=== PATIENT | male | born 1945 | race Caucasian/White ===

== ENCOUNTER → 2016-11-29 | Outpatient (CLI) | payer MEDICARE ==
--- NOTE | 2016-11-30 08:29 | CONS ---
DATE OF CONSULTATION: This patient has severe symptomatic obstructive sleep apnea. He was initially diagnosed back in 2010 and at that time under the care of Dr. Gonzalez the patient was found to have severe LETICIA with an AHI of 59.5. Following that, he was placed on a CPAP pressure of 8 cm of water. The patient used the machine for a total of 2 weeks, unable to tolerate it and he returned it back and he did not get any followup or any treatment following that, Over the years he had become much more symptomatic and he is at the point where he is unable to sleep well at night. His sleep quality is poor. He is waking up tired, fatigued, and not refreshed during the day and he is having frequent sleep attacks and falling asleep here and there without any warning. His weight is also up by approximately 10 pounds. He is requesting further evaluation and treatment. He goes to bed around 11:30 p.m., wakes up at 8 a.m. in the morning and despite that he is still sleepy. He snores and stops breathing throughout the night. PAST MEDICAL HISTORY: 1. Severe LETICIA details as above. 2. Obesity. 3. Bronchial asthma. 4. Degenerative arthritis. Surgical history includes right ear surgery, left knee surgery, right knee surgery and right shoulder surgery. SOCIAL HISTORY: The patient is a nonsmoker. No history of alcohol. No history of IV drugs. FAMILY HISTORY: Negative for sleep apnea. REVIEW OF SYSTEMS: Twelve-point review of systems was done. All of the positive findings were mentioned above in the history of present illness. No history of any motor vehicle accidents because of feeling drowsy or sleepy. No restlessness in the lower extremities. No stroke. No angina. No shortness of breath. He is known to have bronchial asthma, well treated for the time being. BP is 154/81, pulse 76, respirations 16, temperature 98.2, saturation 97% on room air. [place] score is 5. Neck size 18 inches. BMI is 34.1. Weight is 218. Height is 67 inches. GENERAL APPEARANCE: Calm, comfortable. HEENT: Mallampati class IV. There is no goiter or neck masses. LUNGS: Clear to auscultation. HEART: Sounds are regular rate and rhythm. Normal S1, S2. No S3, S4. No murmurs. ABDOMEN: Soft, nontender. No organomegaly. EXTREMITIES: No edema, no cyanosis or clubbing. IMPRESSION: 1. Severe symptomatic obstructive sleep apnea. Based on apnea-hypopnea index was 59.5 based on a sleep study in 2010. The patient had failed to undertake the treatment and follow up on his disease. Note that back then he was placed on a pressure of 8 cm of water. Over the past 5 years he has gained around 10 pounds and he has become much more symptomatic from his sleep breathing disorder. 2. Bronchial asthma. 3. Degenerative arthritis. 4. Nasal septal deviation. PLAN: 1. The patient will need a split-night study to re-confirm the presence of sleep apnea and titrate him to the appropriate pressure and find him the right mask interface. 2. Encourage weight loss. 3. Implement good sleep hygiene measures. 4. Will continue to follow and make further recommendations based on the results of the split-night. The patient seems to be more committed to undertake the treatment now that he has become much more symptomatic.
== END | disposition home or self-care (01) ==
LOC: SLEEP 16:25
PROVIDERS: ATTEND Internal Medicine Critical Care Medicine
DX: G47.33 Obstructive sleep apnea (adult) (pediatric) (principal); J45.909 Unspecified asthma, uncomplicated; M19.90 Unspecified osteoarthritis, unspecified site; J34.2 Deviated nasal septum
CPT/HCPCS: 99211

== ENCOUNTER 2016-12-04 00:56 | Emergency (ER) | payer MEDICARE ==
[2016-12-04 01:21] VITALS: RESP 18
[2016-12-04] MEDS ORDERED: ORPHENADRINE 30 MG/ML 2 ML VIAL IM STA (01:44)
--- NOTE | 2016-12-04 02:23 | XR ---
EXAM: XR Right Hip With Pelvis When Performed, 2 or 3 Views CLINICAL HISTORY: Reason: Pain TECHNIQUE: Two or three views of the right hip, with pelvis when performed. COMPARISON: No relevant prior studies available. FINDINGS: Bones/joints: No acute fracture. No evidence of dislocation. 4-5 mm round sclerotic focus in the right femoral neck is indeterminate, statistically a bone island particularly in the absence of a known primary neoplasm. Mild symmetric degenerative change of both hips. Partially included lower lumbar spondylosis. Soft tissues: No radiopaque foreign body. IMPRESSION: 1. No acute osseous abnormality is seen at this time. 2. Small round sclerotic focus in the right femoral neck is indeterminate, statistically a bone island particularly in the absence of a known primary neoplasm.
--- NOTE | 2016-12-04 02:30 | ED ---
Lower Extremity Injury HPI - General Chief Complaint: Extremity Injury, Lower Stated Complaint: leg pain Time Seen by Provider: 12/04/16 01:33 Source: patient, RN notes reviewed Mode of arrival: wheelchair Limitations: no limitations - History of Present Illness Initial Comments: 71-year-old male presents emergency chief complaint of right leg pain. He stated this patient is in the chair. Patient states also inserted have spasming and increased pain to his right leg. Patient states when he stood up the pain got worse. Patient states the pain seems to be letting up this time. Patient denies any history of this in the past. Patient denies any falls traumas or injuries.Patient denies any recent fever, chills, shortness of breath , chest pain, back pain, abdominal pain, nausea vomiting, numbness or tingling, dysuria or hematuria, constipation or diarrhea, headaches or visual changes, or any other current symptoms. - Related Data Home Medications Medication Instructions Recorded Confirmed Montelukast [Singulair] 1 tab PO DAILY 12/04/16 12/04/16 Allergies Allergy/AdvReac Type Severity Reaction Status Date / Time No Known Allergies Allergy Verified 12/04/16 01:18 Review of Systems ROS Statement: Those systems with pertinent positive or pertinent negative responses have been documented in the HPI. ROS Other: All systems not noted in ROS Statement are negative. Past Medical History Past Medical History: No Reported History History of Any Multi-Drug Resistant Organisms: None Reported Past Surgical History: Ear Surgery, Orthopedic Surgery Past Psychological History: No Psychological Hx Reported Smoking Status: Former smoker Past Alcohol Use History: Occasional Past Drug Use History: None Reported General Exam - General Exam Comments Initial Comments: General: The patient is awake and alert, in no distress, and does not appear acutely ill. Neck: The neck is supple, there is no tenderness. Cardiovascular: There is a regular rate and rhythm. No murmur, rub or gallop is appreciated. Respiratory: Lungs are clear to auscultation, respirations are non-labored, breath sounds are equal. No wheezes, stridor, rales, or rhonchi. Musculoskeletal: Sensation to have 2+ pulses the right lower side. Full Range of motion of right hip right knee and right ankle. Patient does have some tenderness along the lateral aspect of the right hip to the right knee. There is no swelling or deformity noted. Patient does have pain with range of motion in the extremes of the right hip positive for range of motion. Neurological: CN II-XII intact, There are no obvious motor or sensory deficits. Coordination appears grossly intact. Speech is normal. Skin: Skin is warm and dry and no rashes or lesions are noted. Psychiatric: Normal mood and affect. Limitations: no limitations Course Vital Signs 12/04/16 12/04/16 01:19 03:46 Temperature 98.4 F 97 F L Pulse Rate 71 65 Respiratory 18 18 Rate Blood Pressure 142/70 140/62 O2 Sat by Pulse 98 97 Oximetry Medical Decision Making - Medical Decision Making 71-year-old male presents emergency Department chief complaint of right hip pain. This time CAT scan and other laboratory but is not showing any acute findings in the patient's right leg. At this time we discussed patient most likely was having a muscle spasm. We discussed continuing Motrin here in peds. Discussed return parameters and follow-up. We discussed all the patient's questions. He stated he understood and plan. He will be discharged home. Disposition Clinical Impression: Muscle spasm of right leg Disposition: HOME SELF-CARE Condition: Stable Instructions: Muscle Spasm (ED) Additional Instructions: Please use medication as discussed. Please follow up with family doctor if symptoms have not improved over the next two days. Please return to the emergency room if your symptoms increase or worsen or for any other concerns. Referrals: Romy Negro MD [Primary Care Provider] - 1-2 days Time of Disposition: 03:51
--- NOTE | 2016-12-04 03:20 | US ---
EXAM: US Duplex Right Lower Extremity Veins CLINICAL HISTORY: Reason: Pain TECHNIQUE: Real-time ultrasound scan of the veins of the right lower extremity with color Doppler flow, spectral waveform analysis and compression. COMPARISON: No relevant prior studies available. FINDINGS: Deep veins: Unremarkable. No DVT in the common femoral, femoral, proximal deep femoral or popliteal veins. The veins are compressible with normal color flow and augmentation. Superficial veins: Unremarkable. No thrombus in the visualized greater saphenous vein. Soft tissues: No acute findings. No popliteal cyst. IMPRESSION: Normal right lower extremity duplex venous ultrasound.
[2016-12-04 03:48] VITALS: BP 140/62; PULSE 65; TEMP 97
--- NOTE | 2016-12-04 03:48 | CT ---
EXAM: CT Right Lower Extremity Without Intravenous Contrast, Hip CLINICAL HISTORY: Reason: Pain TECHNIQUE: Axial computed tomography images of the right hip without intravenous contrast. CTDI is 21.70 mGy and DLP is 541.20 mGy-cm This CT exam was performed using one or more of the following dose reduction techniques: automated exposure control, adjustment of the mA and/or kV according to patient size, and/or use of iterative reconstruction technique. COMPARISON: Earlier right hip radiographs of the same evening. FINDINGS: Bones/joints: There is no evidence of an acute fracture. No dislocation. Mild degenerative changes. Again seen is a small 5 mm sclerotic focus anteriorly within the femoral head/neck. There is calcific or ossific density present along the posterior margin of the proximal femur, most likely on an enthesopathic basis and/or related to prior injury/tug lesion. Soft tissues: No radiopaque foreign body. No gross hip joint effusion. IMPRESSION: 1. No acute osseous abnormality is seen at this time to account for the patient's pain, further workup for which could be based on clinical grounds. 2. Presumed chronic appearing changes about the right hip, as above. This exam could serve as baseline for future follow-up CT or MRI, to ensure stability, if concern or symptoms persist.
== END 2016-12-04 04:03 | disposition home or self-care (01) ==
LOC: EC 00:56
DX: M62.838 Other muscle spasm (principal); Z87.891 Personal history of nicotine dependence; Z79.899 Other long term (current) drug therapy
CPT/HCPCS: 99284; 96372; 73502; 93971; 73700; J2360

== ENCOUNTER → 2017-01-31 | Outpatient (CLI) | payer MEDICARE ==
--- NOTE | 2017-02-03 14:04 | PN ---
A 71 year old male patient with severe symptomatic obstructive sleep apnea with an AHI of 59.5. The patient was treated with an auto CPAP unit with a maximum pressure of 17 and minimum pressure of 5. Today he is coming in for a compliancy check. He reports marked improvement while on CPAP therapy. His sleep quality has improved considerably. He is wearing his CPAP every night without any interruption. He is averaging around 6.4 hours of CPAP use per night. His P90 pressure is at 12. His leak factor is only at 5 L per minute. His AHI while on treatment is down to 3.4. He is utilizing Simplex Full face mask. He is quite content with his treatment and he is seeing adequate benefit as reported. BP 119/65. Pulse 62. Respiratory rate 16. Temperature 98.1, weight 219. Saturation 98% on room air. General appearance: Calm, comfortable. HEENT: Negative for JVD. No goiter. No neck masses. Mallampati Class IV. Lungs clear to auscultation. Heart sounds regular rate and rhythm. Normal S1, S2. No S3, no S4. No murmurs. Abdomen soft, nontender. No organomegaly. Extremities: Trace edema. There is no cyanosis or clubbing. IMPRESSION: 1. Severe symptomatic obstructive sleep apnea, AHI of 59.9. The patient is undergoing successful CPAP therapy with an auto CPAP unit with a maximum pressure of 17, minimum of 5. Compliance data was checked. 2. Hypersomnia, improved. 3. Degenerative arthritis. 4. Bronchial asthma. PLAN: Treatment is successful. No need for any adjustment on his CPAP unit. The patient's AHI while on treatment is less than 5. He will continue Simplex full face mask. Treatment is successful. Encourage weight loss. The patient is benefitting from treatment. See me back in a years's time or earlier if needed. MAY
== END | disposition home or self-care (01) ==
LOC: SLEEP 13:53
PROVIDERS: ATTEND Internal Medicine Critical Care Medicine
DX: G47.33 Obstructive sleep apnea (adult) (pediatric) (principal); G47.10 Hypersomnia, unspecified

== ENCOUNTER → 2017-05-04 | Outpatient (CLI) | payer MEDICARE ==
[2017-05-04 12:47] LABS: Appearance,Urine Clear (Clear); Bilirubin,Urine Negative (Negative); Glucose,Urine (UA) Negative (Negative); Ketones,Urine Negative (Negative); Leukocyte Esterase,Urine Negative (Negative); Nitrite,Urine Negative (Negative); PH, Urine 6.5 (5.0-8.0); Protein,Urine Negative (Negative); Specific Gravity,Urine 1.005 (1.001-1.035); UA Billing (MACRO vs. MICRO) CHEM; Urobilinogen,Urine <2.0 mg/dL (<2.0)
[2017-05-04 12:50] LABS: Basophils % (A) 1 %; CH 31.4; CHCM 33.4; Eosinophils # (A) 0.2 k/uL (0-0.7); Eosinophils % (A) 5 %; HCT 45.1 % (39.0-53.0); HGB 14.7 gm/dL (13.0-17.5); Luc # (Auto) 0.14; Luc % (Auto) 3; Lymphocytes # (A) 1.7 k/uL (1.0-4.8); Lymphocytes % (A) 35 %; MCH 30.8 pg (25.0-35.0); MCHC 32.6 g/dL (31.0-37.0); MCV 94.3 fL (80.0-100.0); Mean Platelet Volume 7.8; Monocytes # (A) 0.3 k/uL (0-1.0); Monocytes % (A) 6 %; Neutrophils # (A) 2.3 k/uL (1.3-7.7); Neutrophils % (A) 50 %; RBC 4.78 m/uL (4.30-5.90); RDW 13.6 % (11.5-15.5); WBC 4.7 k/uL (3.8-10.6); WBC (Perox) 4.73
[2017-05-04 13:00] LABS: ALT 34 U/L (21-72); AST 19 U/L (17-59); Alkaline Phosphatase 62 U/L (38-126); Anion Gap 7 mmol/L; Blood Urea Nitrogen 13 mg/dL (9-20); Calcium 9.3 mg/dL (8.4-10.2); Carbon Dioxide 27 mmol/L (22-30); Chloride 107 mmol/L (98-107); Cholesterol 186 mg/dL (<200); Creatine Kinase 60 U/L (55-170); Glucose 99 mg/dL (74-99); HDL Cholesterol 39 mg/dL (40-60); Non-African American GFR(MDRD) >60 (>60 ml/min/1.73 sqM); Potassium 4.9 mmol/L (3.5-5.1); Sodium 141 mmol/L (137-145); Total Bilirubin 0.6 mg/dL (0.2-1.3); Total Protein 6.3 g/dL (6.3-8.2)
[2017-05-04 13:30] LABS: Prostate Specific Antigen 1.85 ng/mL (0.00-4.00)
[2017-05-04 21:17] LABS: Hemoglobin A1C 5.5 % (4.2-6.1)
== END | disposition home or self-care (01) ==
LOC: LABWHC1 12:12
PROVIDERS: ATTEND Internal Medicine
DX: G47.33 Obstructive sleep apnea (adult) (pediatric) (principal); J30.9 Allergic rhinitis, unspecified; E78.00 Pure hypercholesterolemia, unspecified; N40.0 Benign prostatic hyperplasia without lower urinary tract symptoms
CPT/HCPCS: 36415; 80053; 80061; 81003; 82306; 82550; 83036; 84153; 84439; 84443; 85025

== ENCOUNTER → 2018-01-30 | Outpatient (CLI) | payer MEDICARE ==
--- NOTE | 2018-01-30 13:52 | PN ---
PROGRESS NOTE Shravan is 72 with known history of obstructive sleep apnea. He is coming in for a yearly check. Note that the patient has severe disease with an AHI of 59.5. Currently he is on auto CPAP with a minimum pressure of 5, maximum pressure of 17. He is using a full-face mask. On today's evaluation, he continues to see adequate benefit from CPAP therapy. Based on the compliance data, the patient has been utilizing a CPAP for more than 4 hours 100% of the time. His average CPAP pressure is 11.8. The average time on the CPAP is 7.6 hours per night. His leak factor 4 L/minute. His AHI is down to 3.3. He has no specific complaints. He wants his supplies to be renewed. Upon further questioning, the patient has bronchial asthma and he is currently on Symbicort. He wanted to have some further investigation regarding any ongoing pulmonary issues knowing that he is having some exertional dyspnea. Note that he has lost around 6 pounds since his last evaluation. He has a small anterior abdominal wall hernia. He has previous history of exposure to [place] during his service in [employer]. He has exertional dyspnea. Occasional cough. Minimum amount of wheezing. No chest pain. No nausea or vomiting. Current [place] Scores of 6. No other significant events over the past 12 months. REVIEW OF SYSTEMS: Twelve-point review of system was done. He has history of environmental allergies and he has received allergy shots through Dr. Haynes and mainly dust mites. He has no ongoing angina. He has undergone a cardiac evaluation by Dr. Melara including a stress test that came back negative. No nausea. No vomiting. No emesis. No chest pain. No major hypersomnia or sleepiness during the day. No altered mentation. No skin rashes. No falls. No other complaints otherwise. PHYSICAL EXAMINATION: BP is 129/69, pulse 66, respirations 16, temperature 97.9 saturation 98% on room air. Weight is 213 height is 5 feet 7 inches. [place] score is 6. BMI 33.3. GENERAL APPEARANCE: Calm, comfortable. Head is atraumatic, normocephalic. Neck is short supple, crowding of posterior of oropharynx is present. No goiter or neck masses. LUNGS: Clear to auscultation. HEART: Sounds regular rate and rhythm. Normal S1, S2. No S3, S4. No murmurs. ABDOMEN: Soft, nontender. No organomegaly. EXTREMITIES: No edema. No cyanosis or clubbing. NEUROLOGIC: The patient is alert and oriented x3. There is no focal neurological deficits. PSYCHIATRIC: Negative for any psych history. No anxiety, no depression. IMPRESSION: 1. Symptomatic severe obstructive sleep apnea with an AHI of 59.9. Currently on APAP with a minimum pressure of 5 maximum pressure of 17 with adequate compliance and clinical response. 2. Bronchial asthma, currently on Symbicort. 3. Small anterior abdominal wall hernia. 4. DUST allergies. 5. Degenerative arthritis. 6. Hypersomnia recovered and current [place] score is down to 6. PLAN: 1. Continue CPAP at same level of pressure. 2. Renew supplies. 3. See me at the pulmonary clinic regarding any asthma related issues or problems in the future. MMODL / IJN: [id number] /
== END | disposition home or self-care (01) ==
LOC: SLEEP 11:38
PROVIDERS: ATTEND Internal Medicine Critical Care Medicine
DX: G47.33 Obstructive sleep apnea (adult) (pediatric) (principal); J45.909 Unspecified asthma, uncomplicated; K43.9 Ventral hernia without obstruction or gangrene; M19.90 Unspecified osteoarthritis, unspecified site; Z79.899 Other long term (current) drug therapy; Z91.09 Other allergy status, other than to drugs and biological substances; Z99.89 Dependence on other enabling machines and devices

== ENCOUNTER → 2018-03-14 | Outpatient (CLI) | payer MEDICARE ==
[2018-03-14 21:41] LABS: Alternaria alternata IgE <0.10 kU/L; Birch IgE <0.10 kU/L; Cat Epith & Dander IgE 2.07 kU/L; Cockroach IgE <0.10 kU/L; Dermato. farinae IgE <0.10 kU/L; Dog Dander IgE 0.13 kU/L; Elm IgE <0.10 kU/L; Maple (Box Elder) IgE <0.10 kU/L; Oak IgE <0.10 kU/L; Ragweed,Common IgE <0.10 kU/L; Red Top (Bentgrass) IgE <0.10 kU/L
== END | disposition home or self-care (01) ==
LOC: LABWHC1 11:21
PROVIDERS: ATTEND Internal Medicine Critical Care Medicine
DX: J45.909 Unspecified asthma, uncomplicated (principal); R06.02 Shortness of breath
CPT/HCPCS: 36415; 82785; 86003

== ENCOUNTER → 2018-05-09 | Outpatient (CLI) | payer MEDICARE ==
[2018-05-09 12:02] LABS: Basophils % (A) 1 %; Eosinophils # (A) 0.2 k/uL (0-0.7); Eosinophils % (A) 3 %; HCT 44.1 % (39.0-53.0); HGB 14.7 gm/dL (13.0-17.5); Lymphocytes # (A) 1.6 k/uL (1.0-4.8); Lymphocytes % (A) 28 %; MCH 30.4 pg (25.0-35.0); MCHC 33.4 g/dL (31.0-37.0); MCV 91.2 fL (80.0-100.0); Mean Platelet Volume 7.9; Monocytes # (A) 0.3 k/uL (0-1.0); Monocytes % (A) 5 %; Neutrophils # (A) 3.5 k/uL (1.3-7.7); Neutrophils % (A) 62 %; Platelet Count 196 k/uL (150-450); RBC 4.83 m/uL (4.30-5.90); RDW 13.2 % (11.5-15.5); WBC 5.7 k/uL (3.8-10.6)
[2018-05-09 12:37] LABS: Albumin 3.5 g/dL (3.5-5.0); Calcium 9.4 mg/dL (8.4-10.2); Potassium 4.8 mmol/L (3.5-5.1); Total Bilirubin 0.6 mg/dL (0.2-1.3); Total Protein 6.4 g/dL (6.3-8.2); Uric Acid 5.6 mg/dL (3.5-8.5)
[2018-05-09 12:43] LABS: Appearance,Urine Clear (Clear); Bilirubin,Urine Negative (Negative); Blood,Urine Negative (Negative); Color,Urine Yellow; Glucose,Urine (UA) Negative (Negative); Ketones,Urine Negative (Negative); Leukocyte Esterase,Urine Negative (Negative); Nitrite,Urine Negative (Negative); PH, Urine 6.5 (5.0-8.0); Protein,Urine Negative (Negative); Specific Gravity,Urine 1.011 (1.001-1.035); Urobilinogen,Urine <2.0 mg/dL (<2.0)
[2018-05-09 12:50] LABS: T4, Free (Free Thyroxine) 0.99 ng/dL (0.78-2.19)
[2018-05-09 13:44] LABS: Prostate Specific Antigen 1.87 ng/mL (0.00-4.00)
[2018-05-09 19:11] LABS: Hemoglobin A1C 5.3 % (4.0-6.0)
== END | disposition home or self-care (01) ==
LOC: LABWHC1 10:42
PROVIDERS: ATTEND Internal Medicine
DX: Z00.00 Encounter for general adult medical examination without abnormal findings (principal); G47.33 Obstructive sleep apnea (adult) (pediatric); J45.30 Mild persistent asthma, uncomplicated; E78.00 Pure hypercholesterolemia, unspecified; N40.0 Benign prostatic hyperplasia without lower urinary tract symptoms
CPT/HCPCS: 36415; 80053; 80061; 81003; 82306; 82550; 83036; 84153; 84439; 84443; 84550; 85025

== ENCOUNTER 2019-03-18 12:17 | Emergency (ER) | payer MEDICARE ==
[2019-03-18 12:44] VITALS: RESP 18
[2019-03-18] MEDS ORDERED: HYDROcodone/APAP 5-325MG 1 EACH TAB PO STA (14:11)
--- NOTE | 2019-03-18 14:28 | ED ---
Back Pain HPI - General Chief Complaint: Back Pain/Injury Stated Complaint: lt leg pain Time Seen by Provider: 03/18/19 13:57 Source: patient, RN notes reviewed Limitations: no limitations - History of Present Illness Initial Comments: 73-year-old male presents emergency Department with chief complaint of left leg pain. Patient had progressive symptoms over the last week states it's unbearable to ambulate patient states that he has a history of back pain states that this is different. Patient states she's never had symptoms on his left leg. Patient denies any bowel bladder incontinence or retention. Patient states that he has pain with rest worse with standing. Patient denies any discoloration of his leg does states it is sensitive to touch. - Related Data Home Medications Medication Instructions Recorded Confirmed Montelukast [Singulair] 10 mg PO HS 12/04/16 03/18/19 Albuterol Sulfate [Proair Hfa] 1 - 2 puff INHALATION RT-Q6H PRN 03/18/19 03/18/19 Budesonide-Formot 160-4.5 Mcg 1 puff INHALATION RT-BID 03/18/19 03/18/19 [Symbicort 160-4.5 Mcg Inhaler] Multivit-Min/FA/Lycopen/Lutein 1 tab PO HS 03/18/19 03/18/19 [Centrum Silver Tablet] Previous Rx's Medication Instructions Recorded HYDROcodone/APAP 7.5-325MG [[place] 1 tab PO Q6HR PRN 3 Days #12 tab 03/18/19 7.5-325] predniSONE 50 mg PO DAILY #5 tab 03/18/19 Allergies Allergy/AdvReac Type Severity Reaction Status Date / Time No Known Allergies Allergy Verified 03/18/19 13:02 Review of Systems ROS Statement: Those systems with pertinent positive or pertinent negative responses have been documented in the HPI. ROS Other: All systems not noted in ROS Statement are negative. Past Medical History Past Medical History: Asthma Additional Past Medical History / Comment(s): back pain,sleep apnea History of Any Multi-Drug Resistant Organisms: None Reported Past Surgical History: Ear Surgery, Orthopedic Surgery Past Psychological History: No Psychological Hx Reported Smoking Status: Former smoker Past Alcohol Use History: Occasional Past Drug Use History: None Reported General Exam Limitations: no limitations General appearance: alert, in no apparent distress Head exam: Present: atraumatic, normocephalic, normal inspection Respiratory exam: Present: normal lung sounds bilaterally. Absent: respiratory distress, wheezes, rales, rhonchi, stridor Cardiovascular Exam: Present: regular rate, normal rhythm, normal heart sounds. Absent: systolic murmur, diastolic murmur, rubs, gallop, clicks Extremities exam: Present: other (Lower extremity strength equal bilaterally, neurovascular intact radial pulses are equal this was confirmed with Doppler. Patient has no discoloration.) Back exam: Present: full ROM, tenderness, paraspinal tenderness. Absent: vertebral tenderness Neurological exam: Present: alert, oriented X3, CN II-XII intact, reflexes normal. Absent: motor sensory deficit Skin exam: Present: warm, dry, intact, normal color. Absent: rash Course Vital Signs 03/18/19 12:39 Temperature 97.9 F Pulse Rate 63 Respiratory 18 Rate Blood Pressure 147/90 O2 Sat by Pulse 98 Oximetry Medical Decision Making - Medical Decision Making 73-year-old male presented for left leg pain, back pain. This is related to lumbar radiculopathy Patient has no vascular clots arterial or venous. Patient's urinalysis unremarkable. Patient be discharged with prednisone, [place]. - Lab Data Lab Results 03/18/19 Range/Units 14:40 Urine Color Light Yellow Urine Appearance Clear (Clear) Urine pH 6.5 (5.0-8.0) Ur Specific [place] 1.006 (1.001-1.035) Urine Protein Negative (Negative) Urine Glucose (UA) Negative (Negative) Urine Ketones Negative (Negative) Urine Blood Negative (Negative) Urine Nitrite Negative (Negative) Urine Bilirubin Negative (Negative) Urine Urobilinogen <2.0 (<2.0) mg/dL Ur Leukocyte Esterase Negative (Negative) Disposition Clinical Impression: Strain of lumbar region, Lumbar radiculopathy, acute Disposition: HOME SELF-CARE Condition: Stable Instructions (If sedation given, give patient instructions): Acute Low Back Pain (ED) Additional Instructions: Please return to the Emergency Department if symptoms worsen or any other concerns. Prescriptions: HYDROcodone/APAP 7.5-325MG [[place] 7.5-325] 1 tab PO Q6HR PRN 3 Days #12 tab PRN Reason: Pain predniSONE 50 mg PO DAILY #5 tab Is patient prescribed a controlled substance at d/c from ED?: Yes When asked, does pt state using other controlled substances?: No If prescribed controlled substance>3 days was MAPS reviewed?: Prescribed <3 Days If opioid is for acute pain is fill amount 7 days or less?: Yes If Rx opioid, was Start Talking consent form obtained?: Yes Referrals: Romy Negro MD [Primary Care Provider] - 1-2 days Rusty Coats DO [Doctor of Osteopathic Medicine] - 1-2 days Time of Disposition: 16:44
[2019-03-18 15:00] LABS: Appearance,Urine Clear (Clear); Bilirubin,Urine Negative (Negative); Blood,Urine Negative (Negative); Color,Urine Light Yellow; Glucose,Urine (UA) Negative (Negative); Ketones,Urine Negative (Negative); Leukocyte Esterase,Urine Negative (Negative); Nitrite,Urine Negative (Negative); PH, Urine 6.5 (5.0-8.0); Protein,Urine Negative (Negative); Specific Gravity,Urine 1.006 (1.001-1.035); Urobilinogen,Urine <2.0 mg/dL (<2.0)
--- NOTE | 2019-03-18 15:17 | XR ---
EXAMINATION TYPE: XR lumbosacral spine min 4V DATE OF EXAM: 03/18/2019 CLINICAL HISTORY: pain COMPARISON: NONE TECHNIQUE: Frontal, lateral, and oblique images of the lumbar spine are obtained. FINDINGS: There are 5 lumbar type vertebral bodies identified. The lumbar spine shows satisfactory alignment without evidence of acute fracture or dislocation. Vertebral body heights are within normal limits. Mild degenerative disc space narrowing and spondylosis. The overlying soft tissue appears unremarkable. IMPRESSION: No acute fracture or dislocation is seen in the lumbar spine.ICD 10 NO FRACTURE, INITIAL EVALUATION
--- NOTE | 2019-03-18 16:35 | US ---
EXAMINATION TYPE: US venous doppler duplex LE LT DATE OF EXAM: 03/18/2019 4:01 PM COMPARISON: NONE CLINICAL HISTORY: Pain. Left hip pain SIDE PERFORMED: Left TECHNIQUE: The lower extremity deep venous system is examined utilizing real time linear array sonog blue with graded compression, doppler sonography and color-flow sonography. VESSELS IMAGED: External Iliac Vein (EIV) Common Femoral Vein Deep Femoral Vein Greater Saphenous Vein * Femoral Vein Popliteal Vein Small Saphenous Vein * Proximal Calf Veins (* superficial vessels) Left Leg: Negative for DVT IMPRESSION: No evidence of deep venous thrombosis in the left leg.
[2019-03-18 17:05] VITALS: BP 139/80; PULSE 60; TEMP 98.4
== END 2019-03-18 17:04 | disposition home or self-care (01) ==
LOC: EC 12:17
DX: S39.012A Strain of muscle, fascia and tendon of lower back, initial encounter (principal); M54.16 Radiculopathy, lumbar region; J45.909 Unspecified asthma, uncomplicated; Z79.51 Long term (current) use of inhaled steroids; Z79.899 Other long term (current) drug therapy; Z87.891 Personal history of nicotine dependence
CPT/HCPCS: 72110; 81003; 99284

== ENCOUNTER → 2019-04-19 | Outpatient (CLI) | payer MEDICARE ==
--- NOTE | 2019-04-19 15:40 | XR ---
EXAMINATION TYPE: XR skull complete DATE OF EXAM: 04/19/2019 COMPARISON: NONE HISTORY: Questionable metal within the right ear. Pre-MRI exam. TECHNIQUE: 4 views of the skull were obtained FINDINGS: No radiopaque metallic densities seen other than dental hardware. Calvarium appears intact. Mild mucosal thickening of the maxillary sinuses. Mild mucosal thickening is also seen in the ethmoi d sinuses. Remaining paranasal sinuses are well aerated. Nasopharynx is patent. Sella turcica is unre markable. IMPRESSION: No calvarial radiopaque foreign body.
== END | disposition home or self-care (01) ==
LOC: RADXRMAIN 15:10
PROVIDERS: ATTEND Physical Medicine & Rehabilitation
DX: Z01.818 Encounter for other preprocedural examination (principal)
CPT/HCPCS: 70260

== ENCOUNTER → 2019-05-10 | Outpatient (CLI) | payer MEDICARE ==
[2019-05-10 13:20] LABS: Basophils % (A) 1 %; Eosinophils # (A) 0.2 k/uL (0-0.7); Eosinophils % (A) 3 %; HCT 41.6 % (39.0-53.0); HGB 14.3 gm/dL (13.0-17.5); Lymphocytes # (A) 1.4 k/uL (1.0-4.8); Lymphocytes % (A) 28 %; MCH 31.8 pg (25.0-35.0); MCHC 34.3 g/dL (31.0-37.0); MCV 92.6 fL (80.0-100.0); Mean Platelet Volume 7.1; Monocytes # (A) 0.3 k/uL (0-1.0); Monocytes % (A) 6 %; Neutrophils % (A) 60 %; Platelet Count 168 k/uL (150-450); RDW 13.1 % (11.5-15.5); WBC 5.1 k/uL (3.8-10.6)
[2019-05-10 18:52] LABS: T4, Free (Free Thyroxine) 1.3 ng/dL (0.80-1.80)
[2019-05-10 19:02] LABS: African American GFR (CKD) 98.5 (60.0-200.0); Albumin 3.9 g/dL (3.80-4.90); Albumin/Globulin Ratio 2.17 (1.60-3.17); Anion Gap 6.6 mmol/L (4.00-12.00); BUN/Creat Ratio 16.67 Ratio (12.00-20.00); Calcium 8.9 mg/dL (8.7-10.3); Carbon Dioxide 26.4 mmol/L (21.6-31.8); Chol/HDL Ratio 4.55; Globulin 1.8 g/dL (1.6-3.3); Potassium 4.5 mmol/L (3.5-5.5); Total Bilirubin 0.8 mg/dL (0.3-1.2); Total Protein 5.7 g/dL (6.2-8.2); Uric Acid 6.4 mg/dL (3.7-8.7)
== END | disposition home or self-care (01) ==
LOC: LABWHC1 12:07
PROVIDERS: ATTEND Internal Medicine
DX: E78.2 Mixed hyperlipidemia (principal); J45.909 Unspecified asthma, uncomplicated; N40.0 Benign prostatic hyperplasia without lower urinary tract symptoms; M10.9 Gout, unspecified
CPT/HCPCS: 36415; 80053; 80061; 84439; 84443; 84550; 85025

== ENCOUNTER → 2019-08-12 | Outpatient (CLI) | payer MEDICARE ==
[2019-08-12 11:38] VITALS: BMI 34.4
== END | disposition home or self-care (01) ==
LOC: DBWHC3 08:54
PROVIDERS: ATTEND Internal Medicine
DX: E66.9 Obesity, unspecified (principal)
CPT/HCPCS: 97802

== ENCOUNTER → 2019-09-06 | Outpatient (CLI) | payer OTHER, MEDICARE ==
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
== END | disposition home or self-care (01) ==
LOC: RADCTMAIN 10:20
PROVIDERS: ATTEND Internal Medicine
DX: G31.9 Degenerative disease of nervous system, unspecified (principal); S19.9XXS Unspecified injury of neck, sequela; R90.89 Other abnormal findings on diagnostic imaging of central nervous system
CPT/HCPCS: 70450; 72125

== ENCOUNTER → 2020-05-13 | Outpatient (CLI) | payer MEDICARE ==
[2020-05-13 12:13] LABS: Basophils % (A) 1 %; Eosinophils # (A) 0.2 k/uL (0-0.7); Eosinophils % (A) 4 %; HGB 14.9 gm/dL (13.0-17.5); Lymphocytes # (A) 1.8 k/uL (1.0-4.8); Lymphocytes % (A) 30 %; MCH 30.4 pg (25.0-35.0); MCHC 33.1 g/dL (31.0-37.0); MCV 92.1 fL (80.0-100.0); Mean Platelet Volume 8.3; Monocytes # (A) 0.3 k/uL (0-1.0); Monocytes % (A) 6 %; Neutrophils # (A) 3.4 k/uL (1.3-7.7); Neutrophils % (A) 58 %; Platelet Count 204 k/uL (150-450); RBC 4.89 m/uL (4.30-5.90); RDW 13.3 % (11.5-15.5); WBC 5.8 k/uL (3.8-10.6)
[2020-05-13 22:44] LABS: African American GFR (CKD) 97.9 (60.0-200.0); Albumin 4.1 g/dL (3.80-4.90); Albumin/Globulin Ratio 1.95 (1.60-3.17); Anion Gap 9.3 mmol/L (4.00-12.00); BUN/Creat Ratio 17.78 Ratio (12.00-20.00); Calcium 9.3 mg/dL (8.7-10.3); Carbon Dioxide 23.7 mmol/L (21.6-31.8); Chol/HDL Ratio 5.58; Globulin 2.1 g/dL (1.6-3.3); Non-African American GFR(CKD) 84.4 (60.0-200.0); Potassium 4.6 mmol/L (3.5-5.5); Total Bilirubin 0.7 mg/dL (0.2-1.2); Total Protein 6.2 g/dL (6.2-8.2)
== END | disposition home or self-care (01) ==
LOC: LABWHC1 11:39
PROVIDERS: ATTEND Internal Medicine
DX: Z00.00 Encounter for general adult medical examination without abnormal findings (principal); N40.0 Benign prostatic hyperplasia without lower urinary tract symptoms; J45.40 Moderate persistent asthma, uncomplicated
CPT/HCPCS: 36415; 80053; 80061; 84443; 85025

== ENCOUNTER 2020-08-18 14:05 | Observation (INO) | payer MEDICARE ==
--- NOTE | 2020-08-18 14:27 | ED ---
Abdominal Pain HPI - General Chief Complaint: Abdominal Pain Stated Complaint: ABD pain Time Seen by Provider: 08/18/20 14:18 Source: patient Mode of arrival: ambulatory Limitations: no limitations - History of Present Illness Initial Comments: 75-year-old male presenting to the emergency department with chief complaint of abdominal pain. Patient states he developed right lower quadrant abdominal pain for the past 2 weeks but it has been significantly worse over the last 2 days. Patient reports last night he was not able to sleep due to the pain. States he saw his primary care physician who ordered a CT of the abdomen and pelvis with contrast earlier today. Patient states after he had imaging performed at this facility, he was contacted by his primary care physician who advised him to return to the emergency department because he has an acute appendicitis. Patient reports currently the pain is about a 5 and denies any nausea vomiting. He did report having some chills and fevers last night. Denies chest pain back pain shortness of breath. - Related Data Home Medications Medication Instructions Recorded Confirmed Albuterol Sulfate [Proair Hfa] 1 - 2 puff INHALATION RT-Q6H PRN 03/18/19 07/03/20 Budesonide-Formot 160-4.5 Mcg 1 puff INHALATION RT-BID 03/18/19 07/03/20 [Symbicort 160-4.5 Mcg Inhaler] Multivit-Min/FA/Lycopen/Lutein 1 tab PO DAILY 03/18/19 07/03/20 [Centrum Silver Tablet] Acetaminophen [Tylenol] 325 - 650 mg PO Q4H PRN 07/03/20 Allergies Allergy/AdvReac Type Severity Reaction Status Date / Time Penicillins Allergy Nausea & Verified 08/18/20 14:17 Vomiting Review of Systems ROS Statement: Those systems with pertinent positive or pertinent negative responses have been documented in the HPI. ROS Other: All systems not noted in ROS Statement are negative. Past Medical History Past Medical History: Asthma, Hearing Disorder / Deafness, Sleep Apnea/CPAP/BIPAP Additional Past Medical History / Comment(s): Bilat hearing aids. Chronic Back pain. Uses CPAP. Hx colon polyp History of Any Multi-Drug Resistant Organisms: None Reported Past Surgical History: Cholecystectomy, Ear Surgery, Orthopedic Surgery Additional Past Surgical History / Comment(s): Reconstruction Rt ear for tumor. Rt shoulder, Bilat knee scope. Colonoscopies Past Anesthesia/Blood Transfusion Reactions: No Reported Reaction Past Psychological History: No Psychological Hx Reported Smoking Status: Former smoker General Exam Limitations: no limitations General appearance: alert, in no apparent distress, obese Head exam: Present: atraumatic, normocephalic, normal inspection Eye exam: Present: normal appearance, PERRL, EOMI Pupils: Present: normal accommodation ENT exam: Present: normal exam, normal oropharynx, mucous membranes moist, TM's normal bilaterally, normal external ear exam Neck exam: Present: normal inspection, full ROM. Absent: tenderness Respiratory exam: Present: normal lung sounds bilaterally. Absent: respiratory distress, wheezes, rales Cardiovascular Exam: Present: regular rate, normal rhythm, normal heart sounds GI/Abdominal exam: Present: soft, tenderness (Right lower quadrant. Positive McBurney point tenderness.). Absent: distended, guarding, rebound, rigid Extremities exam: Present: normal inspection, full ROM, normal capillary refill. Absent: tenderness Back exam: Present: normal inspection, full ROM. Absent: tenderness, CVA tenderness (R), CVA tenderness (L) Neurological exam: Present: alert, oriented X3 Psychiatric exam: Present: normal affect, normal mood Skin exam: Present: warm, dry, intact, normal color Course Vital Signs 08/18/20 14:11 Temperature 97.8 F Pulse Rate 65 Respiratory 18 Rate Blood Pressure 152/74 O2 Sat by Pulse 98 Oximetry Medical Decision Making - Medical Decision Making 75-year-old male presenting to the emergency room with a chief complaint of abdominal pain. CT performed 1.5 hours ago revealed acute appendicitis. I spoke with who will admit the patient and go directly to the OR. Case was discussed with Dr. Quach Disposition Clinical Impression: Acute appendicitis Disposition: ADMITTED IP TO THIS HOSP Condition: Good Is patient prescribed a controlled substance at d/c from ED?: No Referrals: Romy Negro MD [Primary Care Provider] - 1-2 days Time of Disposition: 15:12
[2020-08-18 15:09] LABS: ALT 17 U/L (4-49); AST 26 U/L (17-59); African American GFR (CKD) >90 (>60 ml/min/1.73 sqM); Albumin 3.8 g/dL (3.5-5.0); Alkaline Phosphatase 68 U/L (38-126); Anion Gap 7 mmol/L; Blood Urea Nitrogen 11 mg/dL (9-20); Calcium 9.5 mg/dL (8.4-10.2); Carbon Dioxide 24 mmol/L (22-30); Chloride 103 mmol/L (98-107); Glucose 100 mg/dL (74-99); Lipase 54 U/L (23-300); Non-African American GFR(CKD) 88 (>60 ml/min/1.73 sqM); Potassium 4.8 mmol/L (3.5-5.1); Sodium 134 mmol/L (137-145); Total Bilirubin 0.9 mg/dL (0.2-1.3); Total Protein 6.9 g/dL (6.3-8.2)
[2020-08-18] MEDS ORDERED: NALOXONE 0.4 MG/ML 1 ML VIAL IV PRN (15:12)
[2020-08-18] MEDS ORDERED: LACTATED RINGERS 1,000 ML IV ONE (15:15)
[2020-08-18 15:24] LABS: Basophils # (A) 0.1 k/uL (0-0.2); Basophils % (A) 1 %; Eosinophils # (A) 0.2 k/uL (0-0.7); Eosinophils % (A) 2 %; HCT 47.1 % (39.0-53.0); HGB 15.8 gm/dL (13.0-17.5); Lymphocytes # (A) 2.5 k/uL (1.0-4.8); Lymphocytes % (A) 26 %; MCH 30.5 pg (25.0-35.0); MCHC 33.4 g/dL (31.0-37.0); MCV 91.3 fL (80.0-100.0); Mean Platelet Volume 8.6; Monocytes # (A) 0.6 k/uL (0-1.0); Monocytes % (A) 6 %; Neutrophils # (A) 6.1 k/uL (1.3-7.7); Neutrophils % (A) 63 %; Platelet Count 178 k/uL (150-450); RBC 5.16 m/uL (4.30-5.90); RDW 13.1 % (11.5-15.5); WBC 9.7 k/uL (3.8-10.6)
[2020-08-18 15:26] LABS: Partial Thromboplastin Time 27.1 sec (22.0-30.0); Prothrombin Time 10.6 sec (9.0-12.0)
[2020-08-18] MEDS ORDERED: HEPARIN SODIUM,PORCINE 5,000 UNIT/ML 1 ML VIAL ONE (15:33)
[2020-08-18] MEDS ORDERED: ONDANSETRON 4 MG/2 ML VIAL ONE (15:33)
[2020-08-18] MEDS ORDERED: ONDANSETRON 4 MG/2 ML VIAL IVP ONE ×2 (15:47)
[2020-08-18] MEDS ORDERED: DEXAMETHASONE SOD PHOSPHATE 4 MG/ML 1 ML VIAL IV ONE ×2 (15:48)
[2020-08-18] MEDS ORDERED: HEPARIN SODIUM,PORCINE 5,000 UNIT/ML 1 ML VIAL SQ ONE (15:48)
[2020-08-18] MEDS ORDERED: PROPOFOL 10 MG/ML 20 ML VIAL IV ONE (16:10)
[2020-08-18] MEDS ORDERED: LIDOCAINE 1% INJ 10MG/ML (20 ML MDV) ONE (16:10)
[2020-08-18] MEDS ORDERED: SUCCINYLCHOLINE CHLORIDE 100 MG/5 ML SYR IV ONE (16:10)
[2020-08-18] MEDS ORDERED: fentaNYL (PF) 50 MCG/ML 2 ML AMP ONE (16:10)
[2020-08-18] MEDS ORDERED: BUPIVACAINE (PF) 0.25% 30 ML VIAL SQ ONE (16:24)
[2020-08-18] MEDS ORDERED: ONDANSETRON 4 MG/2 ML VIAL IVP PRN (16:42)
[2020-08-18] MEDS ORDERED: BENZOCAINE/MENTHOL LOZENG 1 EACH LOZENGE MUCOUS MEM PRN (16:42)
--- NOTE | 2020-08-18 16:44 | P.OP ---
Date of Procedure: 08/18/20 Preoperative Diagnosis: Acute appendicitis Postoperative Diagnosis: Acute appendicitis Procedure(s) Performed: Laparoscopic appendectomy Anesthesia: SAUL Surgeon: Aubrey Tariq Estimated Blood Loss (ml): 5 Pathology: other (Appendix) Condition: stable Disposition: PACU Description of Procedure: The patient's placed on the operating table in the supine position. The patient received general anesthesia. The abdomen was prepped and draped in the usual sterile fashion. The skin was anesthetized 1% local Xylocaine at the trocar sites. Using an 11 blade the skin was incised at the umbilicus. The umbilicus was grasped with a [place] clamp and then a Veress needle was placed into the peritoneal cavity. Position of the Veress needle was confirmed with positive drop test. After adequate insufflation a 5 mm trocar was placed into the peritoneal cavity. The abdomen was further insufflated. And then the laparoscope was placed in the peritoneal cavity. Next a 5 mm trocar was placed in the midline suprapubic position. And then a 10 mm trocar was placed in the midline epigastric position. The patient was rotated with the right side up and in Trendelenburg. The appendix was visualized. The appendix appeared to be inflamed. The appendix was grasped and then using the Harmonic scissors the mesoappendix was divided. A PDS Endoloop was then placed around the base of the appendix. And then the appendix was divided using Harmonic scissors. The appendix was placed into an Endo Catch and brought out through the 10 mm trocar site. The abdomen was irrigated. There is no bleeding seen. The trochars withdrawn. The skin was closed interrupted 3-0 Monocryl suture. Dermabond dressing was applied. Patient was sent to recovery room in stable condition.
--- NOTE | 2020-08-18 16:45 | P.GSHP ---
History of Present Illness H&P Date: 08/18/20 Chief Complaint: Acute appendicitis This is a 75-year-old male who is referred to the emergency room due to right lower quadrant pain. Patient's found have acute appendicitis on CAT scan. Past Medical History Past Medical History: Asthma, Hearing Disorder / Deafness, Sleep Apnea/CPAP/BIPAP Additional Past Medical History / Comment(s): Bilat hearing aids. Chronic Back pain. Uses CPAP. Hx colon polyp History of Any Multi-Drug Resistant Organisms: None Reported Past Surgical History: Cholecystectomy, Ear Surgery, Orthopedic Surgery Additional Past Surgical History / Comment(s): Reconstruction Rt ear for tumor. Rt shoulder, Bilat knee scope. Colonoscopies Past Anesthesia/Blood Transfusion Reactions: No Reported Reaction Past Psychological History: No Psychological Hx Reported Smoking Status: Former smoker Medications and Allergies Home Medications Medication Instructions Recorded Confirmed Type Albuterol Sulfate [Proair Hfa] 1 - 2 puff INHALATION RT-Q6H PRN 03/18/19 08/18/20 History Budesonide-Formot 160-4.5 Mcg 1 puff INHALATION RT-BID 03/18/19 08/18/20 History [Symbicort 160-4.5 Mcg Inhaler] Multivit-Min/FA/Lycopen/Lutein 1 tab PO DAILY 03/18/19 08/18/20 History [Centrum Silver Tablet] Allergies Allergy/AdvReac Type Severity Reaction Status Date / Time Penicillins Allergy Nausea & Verified 08/18/20 15:50 Vomiting Surgical - Exam Vital Signs Temp Pulse Resp BP Pulse Ox 97.8 F 65 18 152/74 98 08/18/20 14:11 08/18/20 14:11 08/18/20 14:11 08/18/20 14:11 08/18/20 14:11 - General well developed, well nourished, no distress - Eyes PERRL - ENT normal pinna - Neck no masses - Respiratory normal expansion - Cardiovascular Rhythm: regular - Abdomen Right lower quadrant tenderness Abdomen: soft Results - Labs 08/18/20 14:33 08/18/20 14:33 Abnormal Lab Results - Last 24 Hours (Table) 08/18/20 Range/Units 14:33 Sodium 134 L (137-145) mmol/L Glucose 100 H (74-99) mg/dL Diabetes panel 08/18/20 Range/Units 14:33 Sodium 134 L (137-145) mmol/L Potassium 4.8 (3.5-5.1) mmol/L Chloride 103 (98-107) mmol/L Carbon Dioxide 24 (22-30) mmol/L BUN 11 (9-20) mg/dL Creatinine 0.81 (0.66-1.25) mg/dL Glucose 100 H (74-99) mg/dL Calcium 9.5 (8.4-10.2) mg/dL AST 26 (17-59) U/L ALT 17 (4-49) U/L Alkaline Phosphatase 68 (38-126) U/L Total Protein 6.9 (6.3-8.2) g/dL Albumin 3.8 (3.5-5.0) g/dL Calcium panel 08/18/20 Range/Units 14:33 Calcium 9.5 (8.4-10.2) mg/dL Albumin 3.8 (3.5-5.0) g/dL Pituitary panel 08/18/20 Range/Units 14:33 Sodium 134 L (137-145) mmol/L Potassium 4.8 (3.5-5.1) mmol/L Chloride 103 (98-107) mmol/L Carbon Dioxide 24 (22-30) mmol/L BUN 11 (9-20) mg/dL Creatinine 0.81 (0.66-1.25) mg/dL Glucose 100 H (74-99) mg/dL Calcium 9.5 (8.4-10.2) mg/dL Adrenal panel 08/18/20 Range/Units 14:33 Sodium 134 L (137-145) mmol/L Potassium 4.8 (3.5-5.1) mmol/L Chloride 103 (98-107) mmol/L Carbon Dioxide 24 (22-30) mmol/L BUN 11 (9-20) mg/dL Creatinine 0.81 (0.66-1.25) mg/dL Glucose 100 H (74-99) mg/dL Calcium 9.5 (8.4-10.2) mg/dL Total Bilirubin 0.9 (0.2-1.3) mg/dL AST 26 (17-59) U/L ALT 17 (4-49) U/L Alkaline Phosphatase 68 (38-126) U/L Total Protein 6.9 (6.3-8.2) g/dL Albumin 3.8 (3.5-5.0) g/dL Assessment and Plan Assessment: Acute appendicitis. We'll perform laparoscopic appendectomy
[2020-08-18] MEDS ORDERED: HYDROmorphone 0.5 MG/0.5 ML SYRINGE IVP ONE ×2 (17:05→17:20)
[2020-08-18] MEDS ORDERED: ALBUTEROL NEBULIZED 2.5 MG/3 ML INHALATION PRN (18:38)
[2020-08-18] MEDS: HYDROmorphone 1 MG/ML 1 ML SYRINGE IVP PRN (19:42)
[2020-08-18] MEDS: SYMBICORT 160-4.5 MCG INHALER INHALATION SCH (20:46)
[2020-08-19] MEDS: HEPARIN SODIUM,PORCINE 5,000 UNIT/ML 1 ML VIAL SQ SCH ×2 (00:45→09:44)
[2020-08-19] MEDS: HYDROmorphone 1 MG/ML 1 ML SYRINGE IVP PRN ×2 (00:45→05:49)
[2020-08-19 03:23] VITALS: RESP 16
[2020-08-19] MEDS ORDERED: MULTIVITAMINS, THERA 1 EACH TAB PO SCH (09:00)
[2020-08-19] MEDS: SYMBICORT 160-4.5 MCG INHALER INHALATION SCH (09:19)
[2020-08-19] MEDS ORDERED: HYDROcodone/APAP 5-325MG 1 EACH TAB PO PRN (11:53)
[2020-08-19 14:58] VITALS: BP 151/75; PULSE 77; TEMP 97.7
--- NOTE | 2020-08-19 15:23 | P.DS ---
Providers Date of admission: 08/18/20 16:56 Expected date of discharge: 08/19/20 Attending physician: Aubrey Tariq Consults: 08/18/20 16:45 Consult Physician Routine Consulting Provider: Romy Negro Consult Reason/Comments: Medical management Do you want consulting provider notified?: Yes Primary care physician: Romy Negro Hospital Course: Discharge diagnosis 1. Acute appendicitis status post laparoscopic appendectomy Hospital course This is a 75-year-old male presented with right lower quadrant abdominal pain. Patient had evidence of an acute appendicitis on computed tomography scan. Patient is status post laparoscopic appendectomy. His pain is controlled. He is up and ambulating. He is tolerating diet. He is having bowel movements and passing gas. He is afebrile. He is stable for discharge. Please refer to chart for any further details. Physician Plate And Frame Filter Operator note has been reviewed by physician. Signing provider agrees with the documented findings, assessment, and plan of care. Patient Condition at Discharge: Stable Plan - Discharge Summary Discharge Rx Participant: No New Discharge Prescriptions: New Docusate [Colace] 100 mg PO BID #30 capsule Levofloxacin [Levaquin] 500 mg PO DAILY 7 Days #7 tab Ibuprofen [Motrin] 600 mg PO Q8HR PRN #30 tab PRN Reason: Pain oxyCODONE HCL [OxyIR] 5 mg PO Q6H PRN 3 Days #12 tab PRN Reason: Pain Acetaminophen Tab [Tylenol Tab] 650 mg PO Q4H PRN #30 tablet PRN Reason: Pain Continue Budesonide-Formot 160-4.5 Mcg [Symbicort 160-4.5 Mcg Inhaler] 1 puff INHALATION RT-BID Albuterol Sulfate [Proair Hfa] 1 - 2 puff INHALATION RT-Q6H PRN PRN Reason: Shortness Of Breath Multivit-Min/FA/Lycopen/Lutein [Centrum Silver Tablet] 1 tab PO DAILY Discharge Medication List Albuterol Sulfate [Proair Hfa] 1 - 2 puff INHALATION RT-Q6H PRN 03/18/19 [History] Budesonide-Formot 160-4.5 Mcg [Symbicort 160-4.5 Mcg Inhaler] 1 puff INHALATION RT-BID 03/18/19 [History] Multivit-Min/FA/Lycopen/Lutein [Centrum Silver Tablet] 1 tab PO DAILY 03/18/19 [History] Acetaminophen Tab [Tylenol Tab] 650 mg PO Q4H PRN #30 tablet 08/19/20 [Rx] Docusate [Colace] 100 mg PO BID #30 capsule 08/19/20 [Rx] Ibuprofen [Motrin] 600 mg PO Q8HR PRN #30 tab 08/19/20 [Rx] Levofloxacin [Levaquin] 500 mg PO DAILY 7 Days #7 tab 08/19/20 [Rx] oxyCODONE HCL [OxyIR] 5 mg PO Q6H PRN 3 Days #12 tab 08/19/20 [Rx] Follow up Appointment(s)/Referral(s): Romy Negro MD [Primary Care Provider] - 1-2 days Aubrey Tariq MD [STAFF PHYSICIAN] - 1 Week Activity/Diet/Wound Care/Special Instructions: No driving while taking OxyIR No lifting over 10 pounds You may shower. No soaking or tub baths for 2 weeks Very light activity until you are reevaluated at your follow up appointment with your surgeon Diet regular Discharge Disposition: HOME SELF-CARE
--- NOTE | 2020-08-19 20:31 | P.CONS ---
History of Present Illness - Reason for Consult Consult date: 08/19/20 Requesting physician: Aubrey Tariq - Chief Complaint s/p LAP-APPY due to appendicitis - History of Present Illness This is a 75 year old male with a previous medical history significant for asthma , allergic rhinitis and obstructive sleep apnea on CPAP, and post traumat ic stress disorder from experience after [place] war, patient was in his usual state of health till about few day ago when he developed to have increased right lower abdominal pain after he has been eating popcorn and high residue food, with increased distension and constipations, so he came to see me in the office and I was suspicious for either diverticulitus or appendicitis, he was started on Cipro and Flagyl and labs were done and he was sent for CT scan of the abdomen and pelvis with contrast that was positive for appendicitis and he was sent to the ER and he was seen by who took to the OR immediately for Lap-Rukhsana and was admitted to the floor and I was asked to see him for medical management. Patient is lying down in bed in no acute distress, he denies any chest pain or shortness of breath, pain is controlled and there is no nausea, vomiting or diarrhea, he is passing gas. Review of Systems Constitutional: Denies anorexia, Denies chronic pain, Denies fatigue, Denies weakness Eyes: denies blurred vision, denies bulging eye, denies decreased vision Ears, nose, mouth and throat: Denies dysphagia, Denies neck lump, Denies sore throat Cardiovascular: Denies chest pain, Denies decreased exercise tolerance, Denies dyspnea on exertion, Denies lightheadedness, Denies rapid heart beat, Denies shortness of breath, Denies syncope Respiratory: Reports sleep apnea, Denies congestion, Denies cough, Denies cough with sputum, Denies home oxygen, Denies wheezing Gastrointestinal: Reports abdominal pain, Denies bloating, Denies BRBPR, Denies change in bowel habits, Denies early satiety, Denies loss of appetite, Denies melena, Denies nausea, Denies vomiting Genitourinary: Reports nocturia, Denies dysuria Musculoskeletal: Denies myalgias Musculoskeletal: absent: ankle pain, ankle stiffness, ankle swelling, elbow pain, elbow stiffness, elbow swelling, foot pain, foot stiffness, foot swelling, hand pain, hand stiffness, hand swelling, hip pain, hip stiffness, hip swelling, knee pain, knee stiffness, knee swelling, shoulder pain, shoulder stiffness, shoulder swelling, wrist pain, wrist stiffness, wrist swelling Integumentary: Denies pruritus, Denies rash Neurological: Denies numbness, Denies weakness Psychiatric: Denies anxiety, Denies depression Endocrine: Denies fatigue, Denies weight change Past Medical History Past Medical History: Asthma, GERD/Reflux, Hearing Disorder / Deafness, Sleep Apnea/CPAP/BIPAP Additional Past Medical History / Comment(s): Bilat hearing aids. Chronic Back pain. Uses CPAP. Hx colon polyp History of Any Multi-Drug Resistant Organisms: None Reported Past Surgical History: Cholecystectomy, Ear Surgery, Orthopedic Surgery Additional Past Surgical History / Comment(s): Reconstruction Rt ear for tumor. Rt shoulder, Bilat knee scope. Colonoscopies Past Anesthesia/Blood Transfusion Reactions: No Reported Reaction Past Psychological History: No Psychological Hx Reported Smoking Status: Former smoker (Patient used to smoke a pack per day and quit more than 20 years ago.) - Past Family History Father Family Medical History: CVA/TIA (Father at the age of 84 from CVA, hypertension and [place].) Mother Family Medical History: Unable to Obtain (Mother at the age of 85.) Brother(s) Family Medical History: No Reported History (patient has 2 brothers.) Sister(s) Family Medical History: No Reported History (3 sisters one .) Son(s) Family Medical History: No Reported History (patient has 2 sons no major medical issues.) Daughter(s) Family Medical History: No Reported History (one daughter with no issues.) Medications and Allergies Home Medications Medication Instructions Recorded Confirmed Type Albuterol Sulfate [Proair Hfa] 1 - 2 puff INHALATION RT-Q6H PRN 03/18/19 08/18/20 History Budesonide-Formot 160-4.5 Mcg 1 puff INHALATION RT-BID 03/18/19 08/18/20 History [Symbicort 160-4.5 Mcg Inhaler] Multivit-Min/FA/Lycopen/Lutein 1 tab PO DAILY 03/18/19 08/18/20 History [Centrum Silver Tablet] Acetaminophen Tab [Tylenol Tab] 650 mg PO Q4H PRN #30 tablet 08/19/20 Rx Docusate [Colace] 100 mg PO BID #30 capsule 08/19/20 Rx Ibuprofen [Motrin] 600 mg PO Q8HR PRN #30 tab 08/19/20 Rx Levofloxacin [Levaquin] 500 mg PO DAILY 7 Days #7 tab 08/19/20 Rx oxyCODONE HCL [OxyIR] 5 mg PO Q6H PRN 3 Days #12 tab 08/19/20 Rx Allergies Allergy/AdvReac Type Severity Reaction Status Date / Time Penicillins Allergy Nausea & Verified 08/18/20 15:50 Vomiting Physical Exam Vitals: Vital Signs Temp Pulse Pulse Resp BP BP BP 08/18/20 18:05 62 18 132/70 08/18/20 17:50 66 18 142/70 08/18/20 17:35 70 16 124/74 08/18/20 17:20 67 16 151/72 08/18/20 17:05 57 L 16 178/81 08/18/20 16:50 97.8 F 61 16 187/82 08/18/20 15:20 97.7 F 78 156/83 08/18/20 14:11 97.8 F 65 18 152/74 Pulse Ox 08/18/20 18:05 97 08/18/20 17:50 96 08/18/20 17:35 97 08/18/20 17:20 98 08/18/20 17:05 100 08/18/20 16:50 100 08/18/20 15:20 98 08/18/20 14:11 98 Intake and Output 08/18/20 08/18/20 08/18/20 06:59 14:59 22:59 Intake Total 300 Output Total 10 Balance 290 Intake: IV 300 Output: Estimated Blood Loss 10 Other: Weight 97.522 kg Physical examination: HEENT: head is atraumatic normocephalic, pupils were equal round reactive to light and accommodations , extra ocular muscle movements were intact, mucous membranes of the mouth are somewhat dry. Neck: supple, no JVP. Chest: decreased breath sounds at the bases with few ronchi , no expiratory wheezes, no chest wall tenderness or ntercostal retractions. Heart: first heart sound is depressed, second heart sound is normal there is no gallop or murmur. Abdomen: soft , slightly distended , depressed bowel sounds, stabbing wounds are clean with drainage. Extremities: there is no edema , no calf tenderness , DP + 2 bilaterally. Neurologic examinations: patient is awake , alert and oriented X 3 CN II-XII are grossly intact, muscle power 4/5 in bilateral upper and lower extremities, deep tendon reflexes were depressed. Results CBC & Chem 7: 08/18/20 14:33 08/18/20 14:33 Labs: Abnormal Lab Results - Last 24 Hours (Table) 08/18/20 Range/Units 14:33 Sodium 134 L (137-145) mmol/L Glucose 100 H (74-99) mg/dL Assessment and Plan Assessment: Assessment and Plan: 1. POD #1 S/P Lap-appy. we will continue with current pain management as outlined by general merchant, continue with IVF and zofran , continue with the use of incentive spirometer and increased activity, we will start liquid diet advance as tolerated, and increase activity. 2. Asthma. we will continue with Ventolin HFA 2 puffs inhalation Q 4 h and Symbi [place] 160/4.5 mcg 2 puffs inhalation bid . 3. Allergic rhinitis. stable. 4. Obstructive sleep apnea. we will continue with CPAP. 5. Post traumatic stress disorder. stable. 6. DVT prophylaxis. we will continue with Heparin 5000 units SC Q 8 hours. 7. GI prophylaxis. we will continue with PPI. 8. Thank you for the consult, patient is medically stable for discharge.
== END 2020-08-19 16:13 | disposition home or self-care (01) ==
LOC: EC 14:05 → 4SSUR 16:56
PROVIDERS: ADMIT Surgery; ATTEND Surgery
DX: K35.80 Unspecified acute appendicitis (principal); J45.909 Unspecified asthma, uncomplicated; G47.33 Obstructive sleep apnea (adult) (pediatric); F43.10 Post-traumatic stress disorder, unspecified; H91.90 Unspecified hearing loss, unspecified ear; Z99.89 Dependence on other enabling machines and devices; G89.29 Other chronic pain; M54.9 Dorsalgia, unspecified; K21.9 Gastro-esophageal reflux disease without esophagitis; Z90.49 Acquired absence of other specified parts of digestive tract; Z88.0 Allergy status to penicillin; Z97.4 Presence of external hearing-aid; Z87.19 Personal history of other diseases of the digestive system; Z87.891 Personal history of nicotine dependence; Z79.51 Long term (current) use of inhaled steroids; E66.9 Obesity, unspecified; Z68.32 Body mass index [BMI] 32.0-32.9, adult; Z82.3 Family history of stroke; Z82.49 Family history of ischemic heart disease and other diseases of the circulatory system
CPT/HCPCS: 99284; 94640 ×2; 86900; 86901; 88304; 80053; 83605; 83690; 85025; 85610; 85730; 86850; 87040; 44970; G0378 ×2; J1644 ×2; J1100; J0690; J2405; J1170 ×3; 36415

== ENCOUNTER → 2020-08-18 | Outpatient (CLI) | payer MEDICARE ==
[2020-08-18 12:37] LABS: Basophils # (A) 0.1 k/uL (0-0.2); Basophils % (A) 1 %; Eosinophils # (A) 0.2 k/uL (0-0.7); Eosinophils % (A) 2 %; HCT 43.5 % (39.0-53.0); HGB 15.2 gm/dL (13.0-17.5); Lymphocytes # (A) 1.6 k/uL (1.0-4.8); Lymphocytes % (A) 20 %; MCH 31.8 pg (25.0-35.0); MCHC 34.9 g/dL (31.0-37.0); MCV 91.1 fL (80.0-100.0); Mean Platelet Volume 8.2; Monocytes # (A) 0.5 k/uL (0-1.0); Monocytes % (A) 6 %; Neutrophils # (A) 5.4 k/uL (1.3-7.7); Neutrophils % (A) 69 %; Platelet Count 170 k/uL (150-450); RBC 4.77 m/uL (4.30-5.90); RDW 12.6 % (11.5-15.5); WBC 7.8 k/uL (3.8-10.6)
[2020-08-18 12:40] LABS: Appearance,Urine Clear (Clear); Bilirubin,Urine Negative (Negative); Blood,Urine Negative (Negative); Color,Urine Yellow; Glucose,Urine (UA) Negative (Negative); Ketones,Urine Negative (Negative); Leukocyte Esterase,Urine Negative (Negative); Nitrite,Urine Negative (Negative); PH, Urine 6.5 (5.0-8.0); Protein,Urine Trace (Negative); Specific Gravity,Urine 1.019 (1.001-1.035); Urobilinogen,Urine <2.0 mg/dL (<2.0)
[2020-08-18 12:56] LABS: Albumin 3.6 g/dL (3.5-5.0); Calcium 9.5 mg/dL (8.4-10.2); Potassium 4.6 mmol/L (3.5-5.1); Total Bilirubin 0.9 mg/dL (0.2-1.3); Total Protein 6.6 g/dL (6.3-8.2)
--- NOTE | 2020-08-18 13:56 | CT ---
EXAMINATION TYPE: CT abdomen pelvis w con DATE OF EXAM: 08/18/2020 COMPARISON: 05/16/2011 HISTORY: RLQ pain CT DLP: 1667.5 mGycm Automated exposure control for dose reduction was used. CONTRAST: CT scan of the abdomen pelvis is performed with IV Contrast, patient injected with 100 mL of Isovue 3 00. FINDINGS- LUNG BASES-there is a 5.5 mm subpleural nodule left lower lobe. Pleural thickening on the right also noted. LIVER/GB-postcholecystectomy changes noted.. PANCREAS- No gross abnormality is seen. SPLEEN- No gross abnormality is seen. ADRENALS- No gross abnormality is seen. KIDNEYS/BLADDER- no hydronephrosis or nephrolithiasis. Bilateral renal cysts are noted.. BOWEL-there is diffuse inflammatory change in the right lower quadrant with dilated appendix a patter n compatible with acute appendicitis. Appendix measures 8 mm. No sizable free fluid collection. No ev idence of abscess. LYMPH NODES- No greater than 1cm abdominal or pelvic lymph nodes areappreciated. OSSEOUS STRUCTURES-hypertrophic and degenerative change of the spine. OTHER- aorta of normal caliber. No free fluid or free air. Bladder has a normal appearance. IMPRESSION- 1. Acute appendicitis. Referring physician notified by telephone 08/18/2020 at 1:52 PM. 2. Stable left lower lobe pulmonary nodule and therefore likely benign.
== END | disposition home or self-care (01) ==
LOC: RADCTMAIN 11:39
PROVIDERS: ATTEND Internal Medicine
DX: K35.80 Unspecified acute appendicitis (principal); K57.32 Diverticulitis of large intestine without perforation or abscess without bleeding
CPT/HCPCS: 80053; 85025; 81003; 74177; 36415; Q9967

== ENCOUNTER → 2022-01-20 | Outpatient (CLI) | payer MEDICARE ==
--- NOTE | 2022-01-20 16:02 | US ---
EXAMINATION TYPE: US venous doppler duplex LE LT DATE OF EXAM: 01/20/2022 3:52 PM COMPARISON: NONE CLINICAL HISTORY: 76-year-old male M79.605 PAIN IN LEFT LEG. Edema SIDE PERFORMED: Left TECHNIQUE: The lower extremity deep venous system is examined utilizing real time linear array sonog blue with graded compression, doppler sonography and color-flow sonography. FINDINGS: VESSELS IMAGED: Common Femoral Vein Deep Femoral Vein Greater Saphenous Vein * Femoral Vein Popliteal Vein Small Saphenous Vein * Left Leg: Negative for DVT IMPRESSION: No evidence for DVT within the left lower extremity imaged from the groin to the knee.
== END | disposition home or self-care (01) ==
LOC: RADUSWWP 15:24
PROVIDERS: ATTEND Internal Medicine
DX: M79.605 Pain in left leg (principal); R60.0 Localized edema

== ENCOUNTER → 2023-04-24 | Outpatient (CLI) | payer MEDICARE ==
--- NOTE | 2023-04-24 08:29 | CT ---
EXAMINATION TYPE: CT iac wo con DATE OF EXAM: 04/24/2023 COMPARISON: None HISTORY: Right sided hearing loss and pain. CT DLP: 150mGycm Automated exposure control for dose reduction was used. Unenhanced CT of the internal auditory canals was performed. Imaging was obtained in the axial, coronal and sagittal planes. FINDINGS: The external auditory canals are patent bilaterally. There is fluid within the right-sided mastoid air cells without evidence for bone destruction. Left-sided mastoid air cells are well aerate d. There is soft tissue noted within the right-sided epitympanum and partially surrounding the right ossicular chain compatible with cholesteatoma. No evidence for ossicular chain bone destruction at th is time. There is mild thickening of the right-sided tympanic membrane. Left-sided tympanic membrane and ossicular chain are within normal limits. The scutum is preserved bilaterally. The cochlea and t he semicircular canals are symmetric and unremarkable. Vestibular aqueduct and internal carotid roma l appear unremarkable. Temporomandibular joints are maintained bilaterally. IMPRESSION: 1. Findings suspicious for right-sided cholesteatoma. 2. Chronic right-sided mastoiditis.
== END | disposition home or self-care (01) ==
LOC: RADCTMAIN 07:49
PROVIDERS: ATTEND Otolaryngology
DX: H70.11 Chronic mastoiditis, right ear (principal); H91.91 Unspecified hearing loss, right ear
CPT/HCPCS: 70480

== ENCOUNTER → 2023-09-27 | Outpatient (CLI) | payer MEDICARE ==
--- NOTE | 2023-09-27 13:18 | XR ---
EXAMINATION TYPE: XR chest 2V DATE OF EXAM: 09/27/2023 COMPARISON: 2022. HISTORY: Shortness of breath. Cough and congestion. TECHNIQUE: Frontal and lateral views of the chest are obtained. FINDINGS: There is no focal air space opacity, pleural effusion, or pneumothorax seen. The cardiac silhouette is prominent in the pulmonary vessels are within normal limits. The osseous structures a re intact. IMPRESSION: No acute cardiopulmonary process.
== END | disposition home or self-care (01) ==
LOC: RADXRMAIN 11:16
PROVIDERS: ATTEND Internal Medicine
DX: R06.02 Shortness of breath (principal); R05.9 Cough, unspecified; R09.89 Other specified symptoms and signs involving the circulatory and respiratory systems; R09.81 Nasal congestion
CPT/HCPCS: 71046

== ENCOUNTER → 2024-01-23 | Outpatient (CLI) | payer MEDICARE ==
--- NOTE | 2024-01-24 13:26 | US ---
EXAMINATION TYPE: US thyroid st tissue head/neck DATE OF EXAM: 01/23/2024 COMPARISON: NONE CLINICAL INDICATION: Male, 78 years old with history of E04.1 NONTOXIC SINGLE THYROID NODULE; pain GLAND SIZE: Right Lobe: 3.8 x 1.4 x 1.9 cm Overall Parenchyma: homogeneous Left Lobe: 3.5 x 1.2 x 1.4 cm Overall Parenchyma: homogeneous Isthmus Thickness: .5 cm NODULES RIGHT: # of nodules measured on right: 0 LEFT: # of nodules measured on left: 0 ISTHMUS: # of nodules measured in the isthmus: 0 Bilateral neck scanned, no evidence of lymphadenopathy. IMPRESSION: No discrete thyroid nodules.
== END | disposition home or self-care (01) ==
LOC: RADUSWWP 09:57
PROVIDERS: ATTEND Internal Medicine
DX: E04.1 Nontoxic single thyroid nodule (principal); M54.2 Cervicalgia
CPT/HCPCS: 76536